=== PATIENT | female | born 2000 | race Two or more races ===

== ENCOUNTER 2021-05-01 19:49 | Emergency (ER) | payer MEDICAID ==
[~2021-05-01] VITALS: Ht 165.1 cm; Wt 65.8 kg
[2021-05-01 19:49] VITALS: BP 114/83
[2021-05-01] MEDS ORDERED: ONDANSETRON HCL/PF 4 MG/2 ML VIAL IV ONE (20:00)
[2021-05-01] MEDS ORDERED: IV NS 0.9% 1,000 ML BAG IV ONE (20:00)
[2021-05-01] MEDS ORDERED: LORAZEPAM INJ 2 MG/ML VIAL IV ONE (20:00)
[2021-05-01] MEDS ORDERED: ONDANSETRON HCL/PF 4 MG/2 ML VIAL ONE (20:03)
[2021-05-01] MEDS ORDERED: LORAZEPAM INJ 2 MG/ML VIAL ONE (20:03)
[2021-05-01 20:23] LABS: BASOPHILS % (AUTO) 0.7 % (0.0-2.0); EOSINOPHILS % (AUTO) 2.3 % (0.0-6.0); HEMATOCRIT 40 % (33-45); HEMOGLOBIN 13.2 g/dL (11.5-14.8); LYMPHOCYTES # (AUTO) 2.4 K/uL (0.8-4.8); LYMPHOCYTES % (AUTO) 33.5 % (20.0-44.0); MEAN CORPUSCULAR HGB CONC 33 g/dl (31.0-36.0); MEAN CORPUSCULAR VOLUME 95 fL (82-100); MONOCYTES # (AUTO) 0.4 K/uL (0.1-1.30); MONOCYTES % (AUTO) 5.9 % (2.0-12.0); NEUTROPHILS # (AUTO) 4.1 K/uL (1.8-8.9); NEUTROPHILS % (AUTO) 57.6 % (43.0-81.0); PLATELET COUNT (AUTO) 207 K/uL (150-450); RED BLOOD CELL COUNT(AUTO) 4.18 MIL/uL (4.0-5.2)
--- NOTE | 2021-05-01 20:27 | NUR ---
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 PT AAOX3, VSS. RR EVEN & UNLABORED. DENIES SOB, DIZZINESS, DIARRHEA AT THIS TIME. ON TELE, SR. PT SEEN & EVAL'D BY THELMA [place]. MEDICATED ORDERED, PT SHEREEN WELL. WILL CONT TO MONITOR.
[2021-05-01 20:31] LABS: CALCIUM, SERUM 9.4 mg/dL (8.5-10.1); CREATININE 0.6 mg/dL (0.6-1.3); POTASSIUM 3.9 mmol/L (3.5-5.1)
[2021-05-01 20:36] LABS: ALBUMIN 4.2 g/dL (3.4-5.0); BILIRUBIN,TOTAL 0.2 mg/dL (0.2-1.0); TOTAL PROTEIN, SERUM 7.3 g/dL (6.4-8.2)
[2021-05-01 21:30] LABS: BILIRUBIN,URINE SMALL (NEGATIVE); COLOR,URINE YELLOW (YELLOW); LEUKOCYTE ESTERASE ,URINE Negative (NEGATIVE); NITRITE, URINE Negative (NEGATIVE); PH,URINE 6.5 (5.0-8.0); PROTEIN,URINE 100 mg/dl (NEGATIVE); UGLUCOSE 100 MG/DL mg/dL (NEGATIVE); UROBILINOGEN,URINE 0.2 EU/dL (0.2)
[2021-05-01 21:44] LABS: BACTERIA,URINE Rare /HPF (None Seen); RBC,URINE 81-100 /HPF (0-2); SQUAMOUS EPITHELIAL CELL,UR Few /HPF (None Seen); WBC,URINE NONE SEEN /HPF (0-3)
[2021-05-01] MEDS ORDERED: ONDA4TAB11 PO (21:59)
--- NOTE | 2021-05-01 22:34 | NUR ---
IV removed. Catheter intact and site benign. Pressure and 4x4 applied to site. No bleeding noted.
--- NOTE | 2021-05-01 23:59 | NUR ---
ACCEPTED [facility] DR CARL [phone]
--- NOTE | 2021-05-02 00:04 | NUR ---
CALLED [facility] FOR TRANSPORTATION TO [facility] VN: ETA 90 MINUTES- 2 HOURS
--- NOTE | 2021-05-02 00:35 | NUR ---
REPORT GIVEN TO ALYSSA VARGHESE FOR LISETH
--- NOTE | 2021-05-02 02:00 | NUR ---
PT TRANSFERED BACK TO [facility] YUSRA PATTON
== END 2021-05-02 02:38 ==
LOC: ER 19:49
DX: R07.89 Other chest pain (principal); R11.2 Nausea with vomiting, unspecified; F32.9 Major depressive disorder, single episode, unspecified; F25.9 Schizoaffective disorder, unspecified
CPT/HCPCS: 36415; 71045; 80048; 80076; 80307; 81001; 83690; 84702; 84703; 85025; 93005; 96361; 96374; 96375; 99285; J2060; J2405; J7030